=== PATIENT | female | born 1995 | race Hispanic/Latino ===

== ENCOUNTER 2021-05-15 07:33 | Day surgery (SDC) | payer OTHER ==
[~2021-05-15] VITALS: Ht 152.4 cm; Wt 41.7 kg
[~2021-05-15 07:33] MED LIST: NO; ONDANSETRON4 MG PO; PREVACID30 M2 PO
[2021-05-15] MEDS ORDERED: PERCOCET 5/321 COMBO PO (09:21)
[2021-05-15 09:54] VITALS: BP 121/76
== END 2021-05-15 10:05 | disposition home or self-care (01) | DRG 585 ==
LOC: ORM 07:33
PROVIDERS: ATTEND Surgery
PROC: 0HBU0ZX Excision of Left Breast, Open Approach, Diagnostic (ICD-10-PCS; principal; 2021-05-15)
DX: D24.2 Benign neoplasm of left breast (principal)